=== PATIENT | female | born 1955 | race Two or more races ===

== ENCOUNTER 2018-12-16 21:47 | Emergency (ER) | payer MEDICAID ==
[~2018-12-16] VITALS: Ht 165.1 cm; Wt 78.1 kg
--- NOTE | 2018-12-16 22:04 | NUR ---
BIBDAUGHTER C/O SOB/COUGH, DENIES CONGESTION/FEVER. PATIENT ALSO STATES HAVING L SIDE BACK/RIB PAIN WHEN COUGHING. HAS AUDIBLE WHEEZING. SATS AT 90% ON RA, PLACED ON 3L VIA NC. SKIN WARM TO TOUCH, DRY, INTACT. NO ACUTE DISTRESS NOTED. PT IS HYPERTENSIVE, PLACED ON MONITOR AND READY FOR EVAL.
[2018-12-16] MEDS ORDERED: hydrALAZINE HCL IV 20 MG VIAL ONE (22:40)
[2018-12-16] MEDS ORDERED: methylPREDNISolone SOD SUCC 125 MG/2ML VIAL ONE (22:40)
[2018-12-16 22:53] LABS: BASOPHILS # (AUTO) 0.1 /CMM (0.0-0.2); EOSINOPHILS % (AUTO) 4.7 % (0.0-6.0); HEMATOCRIT 41 % (33-45); LYMPHOCYTES # (AUTO) 2.2 /CMM (0.8-4.8); LYMPHOCYTES % (AUTO) 21.6 % (20.0-44.0); MEAN CORPUSCULAR HGB CONC 34 g/dl (31.0-36.0); MEAN CORPUSCULAR VOLUME 90 fL (82-100); MONOCYTES # (AUTO) 0.6 /CMM (0.1-1.30); MONOCYTES % (AUTO) 5.4 % (2.0-12.0); NEUTROPHILS # (AUTO) 6.9 /CMM (1.8-8.9); NEUTROPHILS % (AUTO) 67.3 % (43.0-81.0); PLATELET COUNT (AUTO) 300 /CMM (150-450); RED BLOOD CELL COUNT(AUTO) 4.53 MIL/uL (4.0-5.2); WHITE BLOOD COUNT (AUTO) 10.3 K/uL (4.3-11.0)
[2018-12-16 22:59] LABS: CALCIUM, SERUM 8.7 mg/dL (8.5-10.1); CREATININE 0.8 mg/dL (0.6-1.3); POTASSIUM 3.7 mmol/L (3.5-5.1)
[2018-12-16] MEDS ORDERED: ALBUTEROL FS 2.5 MG/3 ML VIAL.NEB CONTNEB ONE (23:00)
[2018-12-16] MEDS ORDERED: methylPREDNISolone SOD SUCC 125 MG/2ML VIAL IV ONE (23:00)
[2018-12-16] MEDS ORDERED: IPRATROPIUM NEB FS 0.5 MG/2.5 ML AMPUL.NEB NEB ONE (23:00)
[2018-12-16] MEDS ORDERED: hydrALAZINE HCL IV 20 MG VIAL IV ONE (23:00)
[2018-12-16] MEDS ORDERED: ONDANSETRON HCL/PF 4 MG/2 ML VIAL ONE (23:18)
[2018-12-16] MEDS ORDERED: IPRATROPIUM NEB FS 0.5 MG/2.5 ML AMPUL.NEB ONE (23:19)
[2018-12-16] MEDS ORDERED: ALBUTEROL FS 2.5 MG/3 ML VIAL.NEB ONE (23:19)
[2018-12-16] MEDS ORDERED: ONDANSETRON HCL/PF 4 MG/2 ML VIAL IVP ONE (23:30)
--- NOTE | 2018-12-16 23:32 | NUR ---
ENDORSED TO GAY BOWLING FOR GUERDA
--- NOTE | 2018-12-16 23:43 | NUR ---
PT HYPERTENSIVE ON THE MONITOR. ER AWARE.
--- NOTE | 2018-12-16 23:50 | NUR ---
HITESH GRACE AT BEDSIDE FOR RE-EVAL.
[2018-12-17] MEDS ORDERED: hydrALAZINE HCL IV 20 MG VIAL ONE (00:49)
[2018-12-17] MEDS ORDERED: ONDANSETRON HCL/PF 4 MG/2 ML VIAL ONE (00:49)
[2018-12-17] MEDS ORDERED: hydrALAZINE HCL IV 20 MG VIAL IV ONE (01:00)
[2018-12-17] MEDS ORDERED: ONDANSETRON HCL/PF - ER 4 MG/2 ML VIAL IV ONE (01:00)
--- NOTE | 2018-12-17 01:36 | NUR ---
Patient does not wish to proceed with medical care recommended by Dr. OLIVARES. Patient given information related to possible complications, up to and including , which could occur as a result of leaving the hospital at this time. Patient verbalizes understanding of risks involved due to leaving against medical advice. Patient has signed AMA form.
[2018-12-17 01:37] VITALS: BP 160/90
== END 2018-12-17 01:38 | disposition left against medical advice (07) ==
LOC: ER 21:50
DX: J45.909 Unspecified asthma, uncomplicated (principal); R09.02 Hypoxemia; I16.1 Hypertensive emergency; F17.200 Nicotine dependence, unspecified, uncomplicated; I10 Essential (primary) hypertension
CPT/HCPCS: 36415; 71045; 80048; 82962; 83880; 85025; 87040 ×2; 87804 ×2; 93005; 94644; 96361; 96374; 96375; 99285; J0360 ×2; J2405 ×2; J2930; 87400